=== PATIENT | female | born 1965 | race Caucasian/White ===

== ENCOUNTER 2024-06-03 07:12 | Day surgery (SDC) | payer BC, SELFPAY ==
--- OUTSIDE RECORDS SUMMARY | 2024-04-30 12:59 | XMS_ITS | Data Portability ---
Author Organization [place] - [facility] [place], [facility] Office Address [address] [place] [address] Care Team Providers Care Field Technical Assistant Name Role Phone MIREILLE JOSHI Primary Care Provider Assessment Encounter Date Assessment Date Assessment LastModified by Organization Details LastModified Time 08/31/2023 08/31/2023 Impression: 58-year-old female with right posterior lateral ankle pain, bilateral hindfoot swelling chronic in nature possible peroneal tendinopathy/sub talar synovitis Plan: I did discuss with Henrietta certainly I would not recommend any surgery at this time. I would try physical therapy first. Possibly a MalleoTrain brace. She does have 1 of these at home. I find no major imaging abnormalities or radiographic clinical abnormalities to warrant immediate surgery. She is in agreement with this plan she was given a PT prescription and we will telehealth in about 6 weeks time all questions were answered. [email or web address] Not available 09/01/2023 10:30:38 Plan of Treatment Reminders Order Date Submit Date Provider Last Modified By Organization Details Last Modified Time Details Appointments None recorded . Lab None recorded . Referral physical therapis t referral - PT for right ankle pain, peroneal tendinop athy - Evaluate treat 2023 024 [email or web address] Not available 16:02:37 Procedures None recorded . Surgeries None recorded . Imaging None recorded . Medication Orders None recorded . Patient TargetsNo targets recorded. Patient InstructionsNo instructions recorded. Reason for Referral Physical Therapist Referral for Ankle pain PT for right ankle pain, peroneal tendinopathy - Evaluate treat Referring Physician: Ya Springer, Physician Substation Engineer, Encounter Date: 08/31/2023 Results Created Date Observation Date Name Description Value Unit Range Abnormal Flag Note LastModifiedBy Organization Detail LastModifiedTime 08/31/19 24 04/27/2023 MRI, ankle , w/o contr ast No observ ation record ed. [email or web address] Not Available 08/20 08:17:35 Result Notes None recorded. Procedures Surgical History Date Name Laterality Status Provider Name and Address Organization Details Recorded Time 02/21/2008 Other completed Therese Lorenzo [facility] [place] 08/31/2023 11:52:50 Imaging Results Imaging Date Name Status LastModified by Organiz ation Details LastModified Time 04/27/2023 MRI, ankle, w/o contrast completed [email or web address] Information not available 09/01/2023 08:17:35 Procedure Notes None recorded. Medical Equipment None Reported. Allergies Allergen ID Allergen Name Allergen Category Reaction Reaction Severity Criticality Documentation Date Start Date Code Code System Note Provider Name and Address Organization Details Recorded Time [id number] Substance with sulfonami de structure and antibacte rial mechanism of action (substanc e) medicatio n Not available Not available Not available 08/31/2023 12908 8003 SNOMED Therese nevarez [facility] [place] 4 11:52:33 [id number] amoxicill in medicatio n Not available Not available Not available 08/31/2023 723 RxNorm Therese nevarez [facility] [place] 4 11:52:33 [id number] diclofena c Not available Not available Not available Not available 08/31/2023 3355 RxNorm Therese nevarez [facility] [place] 4 11:53:31 Medications Name Sig Start Date Stop Date Status Note LastModified by Organization Details LastModified Time balsalazide 750 mg capsule Take 3 capsules 3 times a day by oral route for 56 days. active Not Available Not Available No t Available rizatriptan 5 mg tablet Take by oral route. active Not Available Not Available No t Available metoprolol succinate ER 25 mg capsule sprinkle, ext. release 24 hr Take 1 capsule every day by oral route. active Not Available Not Available No t Available Aimovig Autoinjector active Not Available Not Available Not Available Vitals Date Recorded Body height Body mass index (BMI) Body weight Provider Name and Address Organization Details Last Updated DateTime 08/31/2023 170.18 cm 23.5 kg/m2 72317.86 g Therese Lorenzo [facility] [place] 08/31/2023 11:52:06 Date Recorded Body height Body mass index (BMI) Body weight Provider Name and Address Organization Details Last Updated DateTime 10/11/2023 170.18 cm 23.5 kg/m2 63530.86 g VIMAL VALDEZ [address] [place] [address], [phone], [facility] [place] 10/11/2023 09:43:41 Social History Question Answer Notes LastModified by Organizat ion Details LastModified Time Tobacco Smoking Status Never Smoker Therese Lorenzo [facility] [place] 08/31/2023 11:52:47 What Is Your Level Of Alcohol Consumption? None [place] [address] Information not available 08/31/2023 Do You Or Have You Ever Used E-cigarettes Or Vape? Never Used Electronic Cigarettes [place] [address] Information not available 08/31/2023 What Is Your Occupation? [employer] [place] [address] Information not available 08/31/2023 Do You Or Have You Ever Used Smokeless Tobacco? Never Used Smokeless Tobacco [place] [address] Information not available 08/31/2023 Sex: Unknown Functional Status None recorded. Mental Status None recorded. Family History Nothing Reported. Medical History Condition Response HIV or AIDS N High Blood Pressure N Irregular Heartbeat Y MRSA N Any Other Significant Medical Issues N Weight Gain / Loss N Hearing Loss N Angina, Heart Failure or Attack N Night Sweats N Seizures / Epilepsy N Osteoarthritis / Rheumatoid arthritis / Other N Cancer N Stroke N Ulcer / Stomach Bleeding / Indigestion N Visual Loss or Glaucoma N Blood Clots / Phlebitis N Heart Problems N Depression or Anxiety N Emphysema / Chronic Bronchitis N Reaction to General/Local Anesthesia N Hepatitis / Jaundice N Kidney / Bladder Infections N Diabetes N Bleeding Disorder N Chemical Dependency / Alcoholism N Psoriasis / Skin Rash N Thyroid Disorder N Heart Disease N Asthma / Shortness of Breath / Sleep Rougher For Cement ea (please specify) N Pulmonary Embolism N Gynecological HistoryNo gynecological history recorded. Obstetrics History GPAL:G 0 P 0 0 0 0 Past Encounters Encounter ID Performer Location Encounter Start Date Encounter Closed Date Diagnosis/Indication Diagnosis SNOMED-CT Code Diagnosis ICD10 Code Diagnosis Note [id number] VIMAL VALDEZ [facility] Office [address] [place] [id number] 08/31/2023 10:27:06 08/31/2023 14:16:06 Ankle pain 700867424 M25.571 M25.572 Peroneal tendinitis 5320 8009 M76.71 [id number] VIMAL VALDEZ [address] [address] 10/11/2023 09:42:59 10/13/2023 11:10:10 Sinus tarsi syndrome of right ankle 4606528620 6421000 M25.571 Health Concerns Section Related Observation LastModified by Organization Detai ls LastModified Time None Recorded Concern Status LastModified by Organization Details LastModified Time None Recorded Advance Directives Directive None Recorded Payers Encounter Date Sequence Insurance Name Policy Number Policy Pritchett Covered Member ID Pritchett Member ID Guarantor Name 08/31/2023 1 [place] [id number] Henrietta Leandra [id number] 96 [place] 10/11/2023 1 [place] [id number] [place] [id number] Henrietta Leandra Notes Date Note Type Note Provider Name and Address Organization Details Recorded Time 08/31/2023 text/html CC: Right foot p ain HPI: Henrietta is a pleasant 58-year-old female referred by her primary care physician to our practice. She works as an commercial accountant. She reports she has had 3 years of pain in the right foot. She denies injuries just denies any change of shoes or activities. Primarily the discomfort is the posterior lateral ankle sometimes she gets some posterior medial hindfoot pain and swelling. The pain seems to be more posterior lateral but again pain on both sides of the hindfoot. She saw [facility] with her last appointment there in June 2023 starting treatment back in April. She has not tried PT. An MRI was ordered and an MRI was ordered she was told she had a torn tendon and would require surgery. She is here for another opinion. VIMAL VALDEZ [address] [place] [address], [phone], [facility] [place] 09/04/2023 08:13:54 10/11/2023 text/html This visit was a n interactive audio/visual telehealth visit conducted viaMyVerse. Henrietta was identified by name, date of 1965 and consented to this telehealth visit. Starting telehealth time was 11:50 AM ending at 12:05 PM. She was in [place] at the time of the appointment I was at my home office on [place] [address]. We are the only 2 on the telehealth visit. Her last in clinic appointment was with myself on August 30 as a new patient. She had a 3-year history of right ankle pain and swelling. Her clinical exam was quite benign, x-rays were unremarkable, MRI that was performed on 04/27/2023 showed no major structural abnormalities. We discussed a bout a physical therapy to see if this would help her. She did about 6-8 visits of physical therapy and feels like it did help. The PT placed her on a home program. We talked about continuing to work on strengthening and the activities and exercises PT gave her. We talked about power step foot orthotics to help give some support to her feet. We both agreed that since her foot pain has been going on for 3 years is going to take longer than 6 to 8 weeks of physical therapy to get better. She will continue with her exercises and see how she does. She will call if she feels like she needs another prescription for PT and certainly we could send It in. All questions were answered she will follow-up on a as needed basis. Total time spent on the phone, reviewing patient's chart was 15 minutes, greater than 50% devoted to counseling and coordinating care VIMAL VALDEZ [address] [place] [address], [phone], [facility] [place] 10/13/2023 14:36:46 OBGyn Episode No OBEpisode recorded.
[2024-05-28 11:27] VITALS: BMI 25.1
[2024-06-03 07:43] VITALS: BP 141/64; PULSE 74; RESP 16; TEMP 37.1; O2SAT 98
[2024-06-03] MEDS: Tetracaine HCl/PF 0.5% Oph Sol 4 ML DROPS 1 DROP EYE-LEFT (07:44)
[2024-06-03] MEDS: Cyclopentolate 1 % Ophth Sol 2 ML DRPBTL 1 DROP EYE-LEFT ×3 (07:46→08:06)
[2024-06-03] MEDS: Tropicamide 1 % Ophth Sol 3 ML BTL 1 DROP EYE-LEFT ×3 (07:49→08:08)
[2024-06-03] MEDS: Ketorolac Tromethamine 0.5% Op 5 ML DROPS 1 DROP EYE-LEFT ×3 (07:55→08:10)
[2024-06-03] MEDS: Phenylephrine HCL 2.5% Oph SoL 2 ML BOTTLE 1 DROP EYE-LEFT ×3 (07:56→08:11)
--- NOTE | 2024-06-03 08:02 | HO.ANESPROP2 ---
HPI - Anesthesia Eval Consult details Narrative: 59 yo F presenting for left cataract extraction IOL insertion [facility] Past Medical History Medical History (Updated 05/28/24 @ 11:08 by Kendra Porter RN) Palpitations Migraine Ulcerative colitis Leukopenia Family History Family history of problems with anesthesia: No Surgical History Surgical History (Updated 05/28/24 @ 11:26 by Kendra Porter RN) H/O colonoscopy History of lymph node excision Hx of breast biopsy History of Problems with Anesthesia: No Social History Social History Advance Directives: No Advance Directives Information Provided: Yes Advance Directives on File: No Meds Allergies Allergy/AdvReac Type Severity Reaction Status Date / Time amoxicillin [Amoxicillin] Allergy Mild RASH Verified 06/03/24 07:46 Sulfa (Sulfonamide Allergy Mild RASH Verified 06/03/24 07:46 Antibiotics) diclofenac Allergy Unknown Verified 06/03/24 07:46 Active Medications: Current Medications Lactated Ringer's (Lr) 500 mls @ 50 mls/hr IV .Q10H SOPHIE Stop: 06/03/24 17:44 Povidone Iodine (Povidone Iodine 5 % Ophth Soln 30 Ml Bottle) 1 appl EYE-LEFT PREOP PRN PRN Reason: Pre-Op Surgical Implant Prophy Home Medications ?Medication ?Instructions ?Recorded ?Confirmed ?Last Taken ?Type balsalazide 750 mg capsule 2,250 mg PO TID 05/28/24 06/03/24 06/02/24 History cholecalciferol (vitamin D3) 25 25 mcg PO BEDTIME 05/28/24 06/03/24 06/02/24 History mcg (1,000 unit) tablet erenumab-aooe 140 mg/mL 140 mg subcut QMONTH 05/28/24 06/03/24 06/01/24 History subcutaneous auto-injector (Aimovig Autoinjector) metoprolol succinate 25 mg 25 mg PO BEDTIME 05/28/24 06/03/24 06/02/24 History tablet,extended release 24 hr rizatriptan 5 mg tablet 5 mg PO DAILY PRN migraine 05/28/24 06/03/24 06/02/24 History Exam Exam Date and Time: 06/03/24 0750 Height,Weight and Vital Signs: Height 5 ft 6 in Weight 70.6 kg Last Vital Signs Temp 98.8 F 06/03/24 07:43 Pulse 74 06/03/24 07:43 Resp 16 06/03/24 07:43 BP 141/64 H 06/03/24 07:43 Pulse Ox 98 06/03/24 07:43 O2 Del Method Room Air 06/03/24 07:43 Airway Mallampati Class: I TM Dist: >3cm Neck ROM: Full Loose/Missing/Broken Teeth: No (patient denies any loose or broken teeth) Heart: S1S2 Lungs: CTAB Assessment and Plan Assessment Anesthesia Assessment: Anesthesia Plan Discussed and Chart Reviewed Final Anesthetic Review Family History of Problems with Anesthesia: No History of Problems with Anesthesia: No NPO: Yes ASA Class: II Final Preanesthetic Review: No Changes in Pt Med Stat, Meds/Allgs Chart Reviewed, Consent Obtained/Reviewed and Anes Risks/Benef Reviewed Patient Risk: Low Procedure Risk: Low Anesthetic Plan Anesthetic Plan: MAC: and Agree w/ Assess. and Plan Disposition: Standard PACU
[2024-06-03] MEDS: Lactated Ringers 500 ML 50 ML IV (08:10)
--- NOTE | 2024-06-03 08:32 | MHC.SHP ---
Pre-Procedural Eval Section A - 24 Hr Update-Section A only Date of Service: 06/03/24 The patient is an INPATIENT: No Changes since office visit: No Cold of Flu in the past 2 weeks, No New Medical Problems, No Changes in Medication and No Patient answered all questions The patient has been examined within 24 hours of the surgical procedure. The History & Physical has been completed within 30 days and I have reviewed it.: Yes Section B - Complete if H&P > 30 days Chief Complaint: Age-related nuclear cataract, left eye Allergies: Allergies Allergy/AdvReac Type Severity Reaction Status Date / Time amoxicillin [Amoxicillin] Allergy Mild RASH Verified 06/03/24 07:46 Sulfa (Sulfonamide Allergy Mild RASH Verified 06/03/24 07:46 Antibiotics) diclofenac Allergy Unknown Verified 06/03/24 07:46 Plan Diagnosis/Plan: Unchanged I have reviewed the history and physical and performed a pertinent physical examination on my patient. No changes have occurred unless specified. Time Spent With Patient Time: Total time managing care of this patient today ____ minutes.
--- NOTE | 2024-06-03 08:32 | HO.PNOPHT ---
Ophthalmology Procedure Procedure Date of Service: 06/03/24 Ophthalmology Viscoelastic: Healon Duet Dual Pack Pro Ophthalmology Lenses: IOL Acrysof MP - MA60AC (18) Procedure Notes: PREOPERATIVE DIAGNOSIS: Decreased visual acuity left eye secondary to cataract POSTOPERATIVE DIAGNOSIS: Same PROCEDURE: Left cataract extraction with intraocular lens insertion SURGEON: Mauro Lane M.D. ANESTHESIA: Topical/MAC ESTIMATED BLOOD LOSS: None COMPLICATIONS: None After obtaining informed consent, the patient was brought to the operation room suite and placed in the supine position. After adequate sedation per anesthesia, topical drops of Tetracaine were given to the left eye. The eye was then prepped and draped in the usual sterile fashion. The operating room microscope was then positioned over the operative eye and a lid speculum placed. A paracentesis was created. Viscoelastic was then instilled into the anterior chamber. A three plane incision was then created temporally, utilizing a 2.85 mm keratome. Capsulotomy forceps were then utilized to create a circular tear capsulotomy. Hydrodissection and hydrodelineation were carried out until adequate mobilization of the nucleus occurred. Phacoemulsification was then utilized to remove the dense central nucleus followed by removal of the cortical material utilizing the automated aspiration irrigation unit. Viscoat elastic was instilled into the posterior capsular bag followed by placement of a posterior chamber intraocular lens without difficulty. The residual Viscoat elastic was then removed utilizing the automated IA machine. The wound was check and found to be watertight. The patient tolerated the procedure well and the lid speculum was removed. Intracameral injection of Vigamox 0.1 mL followed by a subtenon injection of Kenalog-40 0.2 mL were administered. The patient will be seen in the a.m.
[2024-06-03 08:57] VITALS: BP 123/57; PULSE 63; RESP 16; TEMP 36.2; O2SAT 96
== END 2024-06-03 09:12 | disposition home or self-care (01) ==
PROVIDERS: PCP Nurse Practitioner Primary Care; Visit Provider Ophthalmology
PROC: (CPT 66985; principal; 2024-06-03 09:00)
DX: H25.12 Age-related nuclear cataract, left eye (principal); H52.4 Presbyopia; H40.013 Open angle with borderline findings, low risk, bilateral; H43.393 Other vitreous opacities, bilateral; K51.90 Ulcerative colitis, unspecified, without complications; H11.153 Pinguecula, bilateral; D72.819 Decreased white blood cell count, unspecified; G43.909 Migraine, unspecified, not intractable, without status migrainosus; Z79.899 Other long term (current) drug therapy; Z88.1 Allergy status to other antibiotic agents; Z88.2 Allergy status to sulfonamides
CPT/HCPCS: 66984; J2250; J2704; J3010; J3301; V2630

== ENCOUNTER 2024-06-17 06:35 | Day surgery (SDC) | payer BC, SELFPAY ==
[2024-05-28 11:34] VITALS: BMI 25.1
--- NOTE | 2024-06-13 14:34 | HO.ANESPROP2 ---
Documented by User: Cristine Luke NP 06/13/24 14:35 HPI - Anesthesia Eval Consult details Narrative: 59yo F for Right Cataract Extraction IOL Insertion Left eye 06/03/24: Fent 50, Midaz 2, Propofol 10 PMFSH Past Medical History Medical History (Updated 05/28/24 @ 11:08 by Kendra Porter RN) Palpitations Migraine Ulcerative colitis Leukopenia Family History Family history of problems with anesthesia: No Surgical History Surgical History (Updated 05/28/24 @ 11:26 by Kendra Porter RN) H/O colonoscopy History of lymph node excision Hx of breast biopsy History of Problems with Anesthesia: No Social History Social History Advance Directives: No Advance Directives Information Provided: Yes Advance Directives on File: No Meds Allergies Allergy/AdvReac Type Severity Reaction Status Date / Time amoxicillin [Amoxicillin] Allergy Mild RASH Verified 06/03/24 07:46 Sulfa (Sulfonamide Allergy Mild RASH Verified 06/03/24 07:46 Antibiotics) diclofenac Allergy Unknown Verified 06/03/24 07:46 Home Medications ?Medication ?Instructions ?Recorded ?Confirmed ?Last Taken ?Type balsalazide 750 mg capsule 2,250 mg PO TID 05/28/24 06/03/24 06/02/24 History cholecalciferol (vitamin D3) 25 25 mcg PO BEDTIME 05/28/24 06/03/24 06/02/24 History mcg (1,000 unit) tablet erenumab-aooe 140 mg/mL 140 mg subcut QMONTH 05/28/24 06/03/24 06/01/24 History subcutaneous auto-injector (Aimovig Autoinjector) metoprolol succinate 25 mg 25 mg PO BEDTIME 05/28/24 06/03/24 06/02/24 History tablet,extended release 24 hr rizatriptan 5 mg tablet 5 mg PO DAILY PRN migraine 05/28/24 06/03/24 06/02/24 History Exam Height,Weight and Vital Signs: Height 5 ft 6 in Weight 70.6 kg Assessment and Plan Assessment Anesthesia Assessment: Chart Reviewed Final Anesthetic Review Family History of Problems with Anesthesia: No History of Problems with Anesthesia: No Documented by User: Caroline Shah MD 06/17/24 07:21 COUNT INCLUDES THE [facility] Past Medical History Medical History (Updated 05/28/24 @ 11:08 by Kendra Porter, RN) Palpitations Migraine Ulcerative colitis Leukopenia Surgical History Surgical History (Updated 05/28/24 @ 11:26 by Kendra Porter RN) H/O colonoscopy History of lymph node excision Hx of breast biopsy Social History Social History Advance Directives: No Advance Directives Information Provided: Yes Advance Directives on File: No Meds Allergies Allergy/AdvReac Type Severity Reaction Status Date / Time amoxicillin [Amoxicillin] Allergy Mild RASH Verified 06/03/24 07:46 Sulfa (Sulfonamide Allergy Mild RASH Verified 06/03/24 07:46 Antibiotics) diclofenac Allergy Unknown Verified 06/03/24 07:46 Home Medications ?Medication ?Instructions ?Recorded ?Confirmed ?Last Taken ?Type balsalazide 750 mg capsule 2,250 mg PO TID 05/28/24 06/03/24 06/02/24 History cholecalciferol (vitamin D3) 25 25 mcg PO BEDTIME 05/28/24 06/03/24 06/02/24 History mcg (1,000 unit) tablet erenumab-aooe 140 mg/mL 140 mg subcut QMONTH 05/28/24 06/03/24 06/01/24 History subcutaneous auto-injector (Aimovig Autoinjector) metoprolol succinate 25 mg 25 mg PO BEDTIME 05/28/24 06/03/24 06/02/24 History tablet,extended release 24 hr rizatriptan 5 mg tablet 5 mg PO DAILY PRN migraine 05/28/24 06/03/24 06/02/24 History Exam Airway Mallampati Class: II (one crown laterally) TM Dist: >3cm Neck ROM: Full Heart: rrr Lungs: cta Assessment and Plan Assessment Anesthesia Assessment: Anesthesia Plan Discussed Final Anesthetic Review NPO: Yes ASA Class: II Final Preanesthetic Review: No Changes in Pt Med Stat, Meds/Allgs Chart Reviewed and Consent Obtained/Reviewed Patient Risk: Low Procedure Risk: Low Anesthetic Plan Anesthetic Plan: MAC: Disposition: Standard PACU
[2024-06-17 06:59] VITALS: BP 142/68; PULSE 73; RESP 16; TEMP 36.5; O2SAT 97
[2024-06-17] MEDS: Tetracaine HCl/PF 0.5% Oph Sol 4 ML DROPS 1 DROP EYE-RIGHT (07:00)
[2024-06-17] MEDS: Cyclopentolate 1 % Ophth Sol 2 ML DRPBTL 1 DROP EYE-RIGHT ×3 (07:01→07:09)
[2024-06-17] MEDS: Tropicamide 1 % Ophth Sol 3 ML BTL 1 DROP EYE-RIGHT ×3 (07:02→07:10)
[2024-06-17] MEDS: Ketorolac Tromethamine 0.5% Op 5 ML DROPS 1 DROP EYE-RIGHT ×3 (07:02→07:11)
[2024-06-17] MEDS: Phenylephrine HCL 2.5% Oph SoL 2 ML BOTTLE 1 DROP EYE-RIGHT ×3 (07:03→07:11)
[2024-06-17] MEDS: Lactated Ringers 500 ML 50 ML IV (07:12)
[2024-06-17 07:16] VITALS: BP 125/68; PULSE 74; RESP 16
--- NOTE | 2024-06-17 07:56 | MHC.SHP ---
Pre-Procedural Eval Section A - 24 Hr Update-Section A only Date of Service: 06/17/24 The patient is an INPATIENT: No Changes since office visit: No Cold of Flu in the past 2 weeks, No New Medical Problems, No Changes in Medication and No Patient answered all questions The patient has been examined within 24 hours of the surgical procedure. The History & Physical has been completed within 30 days and I have reviewed it.: Yes Section B - Complete if H&P > 30 days Chief Complaint: Age-related nuclear cataract, right eye Allergies: Allergies Allergy/AdvReac Type Severity Reaction Status Date / Time amoxicillin [Amoxicillin] Allergy Mild RASH Verified 06/03/24 07:46 Sulfa (Sulfonamide Allergy Mild RASH Verified 06/03/24 07:46 Antibiotics) diclofenac Allergy Unknown Verified 06/03/24 07:46 Plan Diagnosis/Plan: Unchanged I have reviewed the history and physical and performed a pertinent physical examination on my patient. No changes have occurred unless specified. Time Spent With Patient Time: Total time managing care of this patient today ____ minutes.
--- NOTE | 2024-06-17 07:57 | P.PCNO_ITS ---
Ophthalmology Procedure Procedure Date of Service: 06/17/24 Ophthalmology Viscoelastic: Healon Duet Dual Pack Pro Ophthalmology Lenses: IOL Acrysof MP - MA60AC (18.) Procedure Notes: PREOPERATIVE DIAGNOSIS: Decreased visual acuity right eye secondary to cataract POSTOPERATIVE DIAGNOSIS: Same PROCEDURE: Right cataract extraction with intraocular lens insertion SURGEON: Mauro Lane M.D. ANESTHESIA: Topical/MAC ESTIMATED BLOOD LOSS: None COMPLICATIONS: None After obtaining informed consent, the patient was brought to the operating room suite and placed in the supine position. After adequate sedation per anesthesia, topical drops of Tetracaine were given to the right eye. The eye was then prepped and draped in the usual sterile fashion. The operating room microscope was then positioned over the operative eye and a lid speculum placed. A paracentesis was created. Viscoelastic was then instilled into the anterior chamber. A three plane incision was then created temporally, utilizing a 2.85 mm keratome. Capsulotomy forceps were then utilized to create a circular tear capsulotomy. Hydrodissection and hydrodelineation were carried out until adequate mobilization of the nucleus occurred. Phacoemulsification was then utilized to remove the dense central nuc leus followed by removal of the cortical material utilizing the automated aspiration irrigation unit. Viscoelastic was instilled into the posterior capsular bag followed by placement of a posterior chamber intraocular lens without difficulty. The residual Viscoelastic was then removed utilizing the automated IA machine. The wound was checked and found to be watertight. The patient tolerated the procedure well and the lid speculum was removed. Intracameral injection of Vigamox 0.1 mL followed by a subtenon injection of Kenalog-40 0.2 mL were administered. The patient will be seen in the a.m.
[2024-06-17 08:24] VITALS: BP 142/67; PULSE 70; RESP 16; TEMP 36.4; O2SAT 100
== END 2024-06-17 08:30 | disposition home or self-care (01) ==
PROVIDERS: PCP Nurse Practitioner Primary Care; Visit Provider Ophthalmology
PROC: (CPT 66985; principal; 2024-06-17 08:00)
DX: H25.11 Age-related nuclear cataract, right eye (principal); H52.4 Presbyopia; H40.013 Open angle with borderline findings, low risk, bilateral; H43.393 Other vitreous opacities, bilateral; H11.153 Pinguecula, bilateral; K51.90 Ulcerative colitis, unspecified, without complications; D72.819 Decreased white blood cell count, unspecified; R00.2 Palpitations; G43.909 Migraine, unspecified, not intractable, without status migrainosus; Z79.620 Long term (current) use of immunosuppressive biologic; Z79.818 Long term (current) use of other agents affecting estrogen receptors and estrogen levels; Z79.899 Other long term (current) drug therapy; Z88.1 Allergy status to other antibiotic agents; Z88.2 Allergy status to sulfonamides
CPT/HCPCS: 66984; J2250; J3301; V2630